=== PATIENT | female | born 1980 | race Caucasian/White ===

== ENCOUNTER 2019-07-01 01:10 | Outpatient (CLI) | payer OTHER, SELFPAY ==
--- NOTE | 2019-07-01 07:30 | DI.US_ITS ---
APPROVED REPORT EXAM: Comprehensive 2D, Doppler, and color-flow Echocardiogram Patient Location: Out-Patient [place] Maker: Jennifer Hu [facility] ([place]) Rhythm: NSR Indications: mitral insufficiency. i34.0 MVP. last echo 2016- re-eval Conclusion Left Ventricle : The left ventricle is normal size. The posterior wall thickness is mildly increased . The septum is normal. The left ventricular systolic function is normal. The left ventricular ejecti on fraction is within the normal range. There is normal LV segmental wall motion. The left ventricula r diastolic function is normal. LVEF is 55-60%. Right Ventricle : The right ventricle is normal size. The right ventricular systolic function is norm al. Atria : Left atrium is mildly dilated. Right atrium size is normal. Aortic Valve : Aortic valve is trileaflet, and mobile. There is no hemodynamic significant aortic andrew vular stenosis. No aortic regurgitation is present. Mitral Valve : Mitral valve leaflets are moderately thickened. Moderate Mitral regurgitation directed anteriorly (Rvol 56ml, RF 46%). No evidence of mitral valve stenosis. Tricuspid Valve : Tricuspid valve leaflets are thickened but open well. Moderate tricuspid regurgitat ion. Great Vessels : The IVC is dilated and collapses >50% with inspiration. Estimated RVSP is 27-35 mmHg . Compared to prior echocardiogram dated 11/17/2015, there is no significant change. Wall motion Left Ventricle The left ventricle is normal size. The left ventricular systolic function is normal. The left ventric ular ejection fraction is within the normal range. The posterior wall thickness is mildly increased. The septum is normal. There is normal LV segmental wall motion. The left ventricular diastolic functi on is normal. LVEF is 55-60%. Right Ventricle The right ventricle is normal size. The right ventricular systolic function is normal. Atria Left atrium is mildly dilated. Right atrium size is normal. Aortic Valve Aortic valve is trileaflet, and mobile. There is no hemodynamic significant aortic valvular stenosis. No aortic regurgitation is present. Mitral Valve Mitral valve leaflets are moderately thickened. No evidence of mitral valve stenosis. Moderate Mitral regurgitation directed anteriorly (Rvol 56ml, RF 46%). prolapse of the posterior mitral valve leafle t. Tricuspid Valve Tricuspid valve leaflets are thickened but open well. Moderate tricuspid regurgitation. Pulmonic Valve Pulmonic valve leaflets are thickened. Mild pulmonic regurgitation. Great Vessels The aortic root is normal in size. The ascending aorta size is normal. The IVC is dilated and collaps es >50% with inspiration. Estimated RVSP is 27-35 mmHg. Pericardium There is no pericardial effusion. 2D Dimensions IVSd 0.95 cm F: 0.6-1.0 LV EDV A2C 105.70 mL PWd 1.00 cm F: 0.6 - 1.0 LV EDV A4C 98.60 mL LVDd 4.65 cm F: 3.8 - 5.2 LA Volume Index A2C 32.46 mL/m2 LVDs 3.20 cm F: 2.2 - 3.5 LA Volume Index A4C 35.24 mL/m2 Aortic Root 2.45 cm F: 2.7 - 3.3 LA Volume Index Biplane 36.36 mL/m2 RA Area A4C 17.83 cm2 LA Area A4C 20.66 cm2 LVOT 1.90 cm (M/F) 1.5-2.5 LA Area A2C 18.45 cm2 Ascending Aorta 2.55 cm F: 2.3 - 3.1 EF AP4 56.39 % LVEF (Teich) 58.34 % EF AP2 54.12 % LVEF (Sykes's) 53.18 % F: 54 - 74 EF BP 53.18 % LV Volume 83.22 mL F: 46 - 106 LV Volume Index 47.01 mL/m2 F: 29 - 61 FS 30.70 % LV Diastology E/A Ratio 1.4 MED E' 0.11 (>0.07 m/s) LV E/e MED 10.30 (<14) LAT E' 0.13 (>0.1 m/s) LV E/e LAT 8.50 (<14) Pulm Vein s 0.50 m/s PV S/D Ratio 0.72 Pulm Vein d 0.70 m/s Pulm Vein a 0.43 m/s Aortic Valve LVOT Area 2.96 cm2 LVOT Peak Romeo. 1.05 m/s LVOT Mean Romeo. 0.82 m/s LVOT Peak Gr. 4.55 mmHg WESTON Vmax Index 1.02 cm2/m2 LVOT Mean Gr. 2.90 mmHg LVOT VTI 0.20 m WESTON Mean Romeo. Index 1.05 cm2/m2 AoV Peak Romeo. 1.74 (0.5-1.3 m/s) AoV Mean Romeo. 1.30 m/s AO Peak GR. 12.16 mmHg AO Mean GR. 7.35 (<5 mmHg) VTI Ratio 0.61 WESTON (VTI) 1.81 (2.5-4.5 cm2) WESTON (VTI) Index 1.02 cm/m2 Mitral Valve MV E Max Romeo. 1.10 (0.4-1.3 m/s) MV A Velocity 0.80 (0.4-1.3 m/s) E/A Ratio 1.31 MV Decel. Time 196.15 (160-240 msec) MV Regurg Volume 56.34 mL MV PHT 56.89 msec MV RF 46.52 % MVA PHT 3.85 cm2 Tricuspid Valve TR P. Velocity 2.61 m/s TV Regurg Vmax 2.61 m/s RAP Estimate 8.00 mmHg RVSP 35.00 mmHg TR P. Gradient 27.15 mmHg
== END 2019-07-01 01:30 ==
PROVIDERS: PCP Nurse Practitioner Family; Visit Provider Nurse Practitioner Family
DX: I34.0 Nonrheumatic mitral (valve) insufficiency (principal); I51.7 Cardiomegaly; I36.1 Nonrheumatic tricuspid (valve) insufficiency
CPT/HCPCS: 93306

== ENCOUNTER → 2019-08-22 09:07 | Outpatient (CLI) | payer OTHER, SELFPAY | PROVIDERS: PCP Nurse Practitioner Family; Referring Provider Nurse Practitioner Family; Visit Provider Internal Medicine Cardiovascular Disease | DX: I34.0 Nonrheumatic mitral (valve) insufficiency (principal) | CPT/HCPCS: 93005; 93010 ==

== ENCOUNTER 2020-06-16 01:58 | Outpatient (CLI) | payer OTHER, SELFPAY ==
[2020-06-16 15:07] LABS: Anion Gap 12.9 mmol/L (3-11); BUN 12 mg/dL (7-18); CO2 25.1 mmol/L (21.0-32.0); Calcium 8.8 mg/dL (8.5-10.1); Calculated LDL 119 mg/dL (<100); Chloride 103 mmol/L (98-107); Cholesterol 197 mg/dL (<200); Glucose 84 mg/dL (74-106); HDL Cholesterol 68 mg/dL (40-60); Potassium 3.9 mmol/L (3.5-5.1); Sodium 141 mmol/L (136-145); Triglyceride 52 mg/dL (<150)
== END 2020-06-16 02:18 ==
PROVIDERS: PCP Nurse Practitioner Family; Visit Provider Nurse Practitioner Family
DX: E78.5 Hyperlipidemia, unspecified (principal)
CPT/HCPCS: 36415; 80048; 80061

== ENCOUNTER 2020-06-18 15:24 | Outpatient (REF) | payer OTHER, SELFPAY ==
--- NOTE | 2020-06-18 14:30 | PAPFT_PTH ---
PATIENT: Roberth Francisco LOC: [facility] U#:[id number] AGE/SX: 39/F ROOM: RE06/18/[address]: VINITA Fermin : 1980 BED: DIS: 06/18/2020 SPEC #: [id number] RECD: 06/21/20 13:08 STATUS: LAVONNE LAI #: [id number] NAMRATA: 06/18/20 14:[address]: Mariajose Qureshi DEPT: [facility] Cytology RECD BY: Suma Mast Tissues: 1 - CX/ENDOCX FOR PAP SMEARS Procedures: PAP THIN PREP/UVM Screening HPV DNA PROBE Comments: [id number] ([id number] [facility])
== END 2020-06-18 15:44 ==
LOC: LBN 15:24
PROVIDERS: PCP Nurse Practitioner Family; Visit Provider Nurse Practitioner Family
DX: Z12.4 Encounter for screening for malignant neoplasm of cervix (principal); Z11.51 Encounter for screening for human papillomavirus (HPV)
CPT/HCPCS: 88142; 87624

== ENCOUNTER 2020-07-21 01:01 | Outpatient (CLI) | payer OTHER, SELFPAY ==
--- NOTE | 2020-07-21 13:48 | DI.US_ITS ---
APPROVED REPORT EXAM: Comprehensive 2D, Doppler, and color-flow Echocardiogram Patient Location: Out-Patient Data Transcriber: Dulce Conner RDCS ([place]) Indications: Mitral valve insufficiency Other Information Study Quality: Good Conclusion Left Ventricle : The left ventricle is normal size. The left ventricular systolic function is normal. The left ventricular ejection fraction is within the normal range. There is normal left ventricular wall thickness. There is normal LV segmental wall motion. The left ventricular diastolic function is normal. LVEF is 60%. Right Ventricle : The right ventricle is normal size. The right ventricular systolic function is norm al. The RVSP is 33.7 mmHg. Atria : The left atrium size is normal. The right atrium size is normal. Mitral Valve : The mitral valve is normal in structure. Moderate mitral regurgitation. Mitral regurgi tation jet is anteriorly directed. No evidence of mitral valve stenosis. Mild mitral valve prolapse. Great Vessels : The aortic root is normal in size. The ascending aorta is normal in size. Aortic arch is normal in caliber. IVC is normal in size and collapses >50% with inspiration. Compared to study from 07/01/2019, there is no significant change. Wall motion Left Ventricle The left ventricle is normal size. The left ventricular systolic function is normal. The left ventric ular ejection fraction is within the normal range. There is normal left ventricular wall thickness. T here is normal LV segmental wall motion. The left ventricular diastolic function is normal. There is no ventricular septal defect visualized. LVEF is 60%. Right Ventricle The right ventricle is normal size. The right ventricular systolic function is normal. The RVSP is 33 .7 mmHg. Atria The left atrium size is normal. The right atrium size is normal. The interatrial septum is intact wit h no evidence for an atrial septal defect. Aortic Valve The aortic valve is normal in structure. Aortic valve is trileaflet. There is no aortic valvular sten osis. No aortic regurgitation is present. Mitral Valve The mitral valve is normal in structure. No evidence of mitral valve stenosis. Moderate mitral regurg itation. Mitral regurgitation jet is anteriorly directed. Mild mitral valve prolapse. Tricuspid Valve The tricuspid valve is normal in structure. There is no tricuspid valve stenosis. Mild tricuspid regu rgitation. Pulmonic Valve The pulmonary valve is normal in structure. There is no pulmonic valvular stenosis. Trace pulmonic re gurgitation. Great Vessels The aortic root is normal in size. The ascending aorta is normal in size. Aortic arch is normal in ca liber. IVC is normal in size and collapses >50% with inspiration. Pericardium There is no pericardial effusion. There is no pleural effusion. 2D Dimensions IVSD d PLAX 0.82 cm F: 0.6-1.0 LV Vol A2C d MOD 83.9 mL LVPW d PLAX 0.82 cm F: 0.6 - 1.0 LV Vol A4C d MOD 93.2 mL LVID d PLAX 4.92 cm F: 3.8 - 5.2 LA vol/ BSA A2C s A-L 32.8 mL/m2 LVDs 3.10 cm F: 2.2 - 3.5 LA vol/ BSA A4C s A-L 28.3 mL/m2 Ao Root d 2.62 cm F: 2.7 - 3.3 LA Vol/ BSA Biplane s A-L 31.5 mL/m2 RA Area A4C 11.91 cm2 LA Area A4C s MOD 18.05 cm2 RA Vol/ BSA A4C s A-L 17.4 mL/m2 LA Area A2C s MOD 18.78 cm2 Ao Asc Diam d 2.95 cm F: 2.3 - 3.1 LV EF A4C MOD 59.9 % LV EF Teichholz 66.4 % LV EF A2C MOD 60.4 % LVEF (Sykes's) 59.94 % F: 54 - 74 LV EF Biplane MOD 59.9 % LV Volume 71.54 mL F: 46 - 106 SV 54.30 mL LV Volume Index 41.59 mL/m2 F: 29 - 61 SV Index 31.47 mL/m2 LV Vol Biplane MOD 90.6 mL FS 36.70 % M-Mode TAPSE 2.68 cm (M/F) >1.7 LV Diastology MV E' medial 0.090 (>0.07 m/s) E/A Ratio 1.4 LV E/e MED 10.60 (<14) MV E Vmax 0.96 (0.4-1.3 m/s) MV E' lateral 0.194 (>0.1 m/s) MV A Vmax 0.70 (0.4-1.3 m/s) LV E/e LAT 4.90 (<14) MV E/A Ratio 1.29 MV E/E' medial 10.63 MV E/E' lateral 4.95 Aortic Valve LVOT Area 3.42 cm2 AoV Area Vmax 2.48 cm2 LVOT Vmax 1.32 m/s AoV Area/ BSA (Vmax) 1.43 cm2/m2 LVOT Mean Romeo. 0.92 m/s WESTON Mean Romeo. 2.52 cm2 LVOT Peak Grad 7.0 mmHg WESTON Mean Romeo. Index 1.46 cm2/m2 LVOT Mean Grad 3.9 mmHg LVOT VTI 0.257 m LVOT Diam s 2.05 cm AoV Vmax 1.83 m/s Velocity Ratio 0.72 AoV Mean Romeo. 1.26 m/s AoV Peak Grad 13.4 mmHg LVOT SV 87.92 mL AoV Mean Grad 7.4 mmHg AoV VTI 0.323 m AoV Area VTI 2.72 cm2 AoV Area/ BSA (VTI) 1.58 cm/m2 Mitral Valve MV DT 188 (160-240 msec) MR Vmax 5.12 m/s MV PHT 54 msec MR VTI 1.618 m MV Area PHT 4.04 cm2 MR Peak Grad 104.7 mmHg MV VTI 0.266 m MR Mean Grad 72.5 mmHg MV VTI Annulus 0.262 m MR PISA Radius 0.49 cm MV Area VTI 3.25 (4.0-6.0 cm2) MR EROA 0.10 cm2 MR Aliasing Velocity 0.35 m/s MR PISA 1.51 cm2 Pulmonary Valve PV Vmax 1.66 (0.5-1.5 m/s) RVOT Peak Gr. 5.21 mmHg PV Peak Grad 11.0 mmHg RVOT Mean Gr. 2.30 mmHg PV Mean Grad 5.0 mmHg RVOT VTI 0.241 m PV VTI 0.322 m RVOT Vmax 1.14 m/s Tricuspid Valve TR Peak Grad 30.6 mmHg TR Vmax 2.77 m/s RA Pressure 3.00 mmHg RVSP (TR) 33.7 mmHg
== END 2020-07-21 01:21 ==
PROVIDERS: PCP Nurse Practitioner Family; Visit Provider Nurse Practitioner Family
DX: I34.0 Nonrheumatic mitral (valve) insufficiency (principal)
CPT/HCPCS: 93306

== ENCOUNTER 2020-07-26 01:27 | Outpatient (CLI) | payer OTHER, SELFPAY ==
--- NOTE | 2020-07-26 07:00 | DI.MAMMO_ITS ---
EXAM: MG MAMMO SCREENING CLINICAL HISTORY: screening, Z12.39. TECHNIQUE: Bilateral full field digital CC and MLO mammographic images were obtained with 3D tomosyn thesis and utilizing computer aided detection (CAD). COMPARISON: None. This is a baseline mammogram on this 39-year-old patient. FINDINGS: The fibroglandular tissue is dense, this decreasing the sensitivity of the mammogram for finding in u nderlying lesions. There are no CAD designations. There are no obvious spiculated masses nor malignant-appearing microcalcification groups. There is no significant architectural distortion nor skin thickening-retraction. IMPRESSION: Dense bilateral fibroglandular tissue. No obvious radiographic evidence of malignancy. Given the density of this patient's fibroglandular tissue if there are any palpable lumps or signific ant family history then screening bilateral breast ultrasound should be considered. BI-RADS Category 2 - Benign Findings Breast Density - Category C - Heterogeneously dense Breast density Category C or D implies that the patient has dense breast tissue. Dense breast tissue can make it harder to find cancer on a mammogram. Dense breast tissue is also associated with an incr eased risk of breast cancer. This information about the result of the mammogram report was provided to the patient to raise their awareness. Use this report when you speak with the patient about their risks for breast cancer, which includes their family history. At that time, you may recommend additional screening tests (Ultrasoun d or MRI) as these tests may add significant information. A negative radiographic report should not delay biopsy if a dominant or clinically suspicious mass is present. Up to ten percent of cancers are not identified on mammography. A negative report may reinforce clinical impression. Adenosis and dense breasts may obscure an underlying neoplasm. False positive reports average 6 to 10%. Patient will receive a letter notifying them of these results.
== END 2020-07-26 01:47 ==
PROVIDERS: PCP Nurse Practitioner Family; Visit Provider Nurse Practitioner Family
DX: Z12.31 Encounter for screening mammogram for malignant neoplasm of breast (principal)
CPT/HCPCS: 77063; 77067

== ENCOUNTER 2022-09-26 01:17 | Outpatient (CLI) | payer OTHER, SELFPAY ==
--- NOTE | 2022-09-26 08:15 | DI.MAMMO_ITS ---
Exam(s) MAMMO SCREENING EXAM: MAMMO SCREENING CLINICAL HISTORY: screening,Z12.39. TECHNIQUE: Bilateral full field digital CC and MLO mammographic images were obtained with 3D tomosyn thesis and utilizing computer aided detection (CAD). COMPARISON: Prior baseline mammogram of June 2020 was reviewed. FINDINGS: The fibroglandular tissue pattern is again noted be moderately dense. This somewhat decreases the se nsitivity of the mammogram for finding hidden underlying lesions. There are no CAD designations. There are no obvious new spiculated masses nor malignant appearing microcalcification groups. There is no significant architectural distortion nor skin thickening-retraction. IMPRESSION: No radiographic evidence of malignancy. BI-RADS Category 2 - Benign Findings Breast Density - Category C - Heterogeneously dense Breast density Category C or D implies that the patient has dense breast tissue. Dense breast tissue can make it harder to find cancer on a mammogram. Dense breast tissue is also associated with an incr eased risk of breast cancer. This information about the result of the mammogram report was provided to the patient to raise their awareness. Use this report when you speak with the patient about their risks for breast cancer, which includes their family history. At that time, you may recommend additional screening tests (Ultrasoun d or MRI) as these tests may add significant information. A negative radiographic report should not delay biopsy if a dominant or clinically suspicious mass is present. Up to ten percent of cancers are not identified on mammography. A negative report may reinforce clinical impression. Adenosis and dense breasts may obscure an underlying neoplasm. False positive reports average 6 to 10%. Patient will receive a letter notifying them of these results.
--- NOTE | 2022-09-26 13:57 | DI.US_ITS ---
APPROVED REPORT EXAM: Comprehensive 2D, Doppler, and color-flow Echocardiogram Patient Location: Out-Patient [place] Helper: Dulce Conner RDCS ([place]) Indications: Reassess MVR, MVP Other Information Study Quality: Adequate Conclusion Normal left ventricular wall thickness and chamber size. Ejection fraction is 60%. Wall motion is n ormal Normal right ventricular size and systolic function Both atria are normal in size Mildly thickened mitral leaflets with mild prolapse. There is moderate eccentric mitral regurgitatio n Estimated right ventricular systolic pressure is 23 mmHg Wall motion Left Ventricle The left ventricle is normal size. The left ventricular systolic function is normal. The left ventric ular ejection fraction is within the normal range. There is normal left ventricular wall thickness. T here is normal LV segmental wall motion. There is no ventricular septal defect visualized. LVEF is 60 %. Right Ventricle The right ventricle is normal size. The right ventricular systolic function is normal. The RVSP is 22 .8_ mmHg. Atria The left atrium size is normal. The right atrium size is normal. The interatrial septum is intact wit h no evidence for an atrial septal defect. Aortic Valve The aortic valve is normal in structure. Aortic valve is trileaflet. There is no aortic valvular sten osis. No aortic regurgitation is present. Mitral Valve Very mildly thickened mitral leaflets No evidence of mitral valve stenosis. moderate mitral regurgit ation. Mitral regurgitation jet is eccentrically directed. Mild mitral valve prolapse. Tricuspid Valve The tricuspid valve is normal in structure. There is no tricuspid valve stenosis. Trace to mild tricu spid regurgitation. Pulmonic Valve The pulmonary valve is normal in structure. There is no pulmonic valvular stenosis. Trace pulmonic re gurgitation. Great Vessels The aortic root is normal in size. Ascending aorta is not well visualized. Aortic arch is normal in c aliber. IVC is normal in size and collapses >50% with inspiration. Pericardium There is no pericardial effusion. 2D Dimensions IVSD d PLAX 0.90 cm F: 0.6-1.0 LV Vol A2C d MOD 100.7 mL LVPW d PLAX 0.92 cm F: 0.6 - 1.0 LV Vol A4C d MOD 83.8 mL LVID d PLAX 4.55 cm F: 3.8 - 5.2 LA vol/ BSA A2C s A-L 31.6 mL/m2 LVDs 3.05 cm F: 2.2 - 3.5 LA vol/ BSA A4C s A-L 30.1 mL/m2 Ao Root d 2.67 cm F: 2.7 - 3.3 LA Vol/ BSA Biplane s A-L 33.3 mL/m2 RA Area A4C 10.55 cm2 LA Area A4C s MOD 18.40 cm2 RA Vol/ BSA A4C s A-L 12.5 mL/m2 LA Area A2C s MOD 17.44 cm2 LV EF Teichholz 60.8 % LV EF A4C MOD 60.4 % LVEF (Sykes's) 60.23 % F: 54 - 74 LV EF A2C MOD 61.3 % LV Volume 75.22 mL F: 46 - 106 LV EF Biplane MOD 60.2 % LV Volume Index 43.73 mL/m2 F: 29 - 61 SV 57.30 mL LV Vol Biplane MOD 95.1 mL SV Index 33.31 mL/m2 FS 32.40 % M-Mode TAPSE 2.10 cm (M/F) >1.7 LV Diastology MV E' medial 0.116 (>0.07 m/s) E/A Ratio 1.1 LV E/e MED 5.95 (<14) MV E Vmax 0.69 (0.4-1.3 m/s) MV E' lateral 0.163 (>0.1 m/s) MV A Vmax 0.65 (0.4-1.3 m/s) LV E/e LAT 4.25 (<14) MV E/A Ratio 0.99 MV E/E' medial 5.95 MV E/E' lateral 4.25 Aortic Valve LVOT Area 3.10 cm2 AoV Area Vmax 2.46 cm2 LVOT Vmax 1.35 m/s AoV Area/ BSA (Vmax) 1.43 cm2/m2 LVOT Mean Romeo. 0.88 m/s WESTON Mean Romeo. 2.32 cm2 LVOT Peak Grad 7.3 mmHg WESTON Mean Romeo. Index 1.35 cm2/m2 LVOT Mean Grad 3.7 mmHg LVOT VTI 0.260 m LVOT Diam s 1.95 cm AoV Vmax 1.70 m/s Velocity Ratio 0.79 AoV Mean Romeo. 1.18 m/s AoV Peak Grad 11.5 mmHg LVOT SV 80.52 mL AoV Mean Grad 6.2 mmHg AoV VTI 0.294 m AoV Area VTI 2.74 cm2 AoV Area/ BSA (VTI) 1.59 cm/m2 Mitral Valve MV DT 239 (160-240 msec) MR Vmax 5.45 m/s MV PHT 69 msec MR VTI 1.661 m MV Area PHT 3.17 cm2 MR Peak Grad 118.9 mmHg MV VTI 0.283 m MR Mean Grad 78.1 mmHg MV VTI Annulus 0.293 m MV Area VTI 2.94 (4.0-6.0 cm2) Pulmonary Valve PV Vmax 1.77 (0.5-1.5 m/s) RVOT Peak Gr. 5.63 mmHg PV Peak Grad 12.6 mmHg RVOT Mean Gr. 2.40 mmHg PV Mean Grad 5.8 mmHg RVOT VTI 0.251 m PV VTI 0.308 m RVOT Vmax 1.19 m/s Tricuspid Valve TR Peak Grad 19.7 mmHg TR Vmax 2.22 m/s RA Pressure 3.00 mmHg RVSP (TR) 22.8 mmHg
== END 2022-09-26 01:37 ==
LOC: DI 01:17
PROVIDERS: PCP Nurse Practitioner Family; Visit Provider Nurse Practitioner Family
DX: Z12.39 Encounter for other screening for malignant neoplasm of breast (principal); I34.0 Nonrheumatic mitral (valve) insufficiency
CPT/HCPCS: 77063; 77067; 93306

== ENCOUNTER 2023-10-19 08:05 | Day surgery (SDC) | payer OTHER, SELFPAY ==
--- NOTE | 2023-10-19 08:33 | ANES.PREOP_ITS ---
General Info Date of Service Date Performed: 10/19/23 Height: 5 ft 6 in Weight: 70.76 kg Body Mass Index (BMI): 25.2 Surgical Procedure: Operation Date: 10/19/23 09:05 Proposed Procedure Side Surgeon kala Baker DO Meds Allergies and Home Medications Allergies Allergy/AdvReac Type Severity Reaction Status Date / Time gluten AdvReac Intermediate HEADACHE, Verified 10/19/23 08:32 STOMACH ACHE Home Medication Medication Instructions Recorded biotin 5,000 mcg disintegrating 5,000 mcg PO DAILY 06/18/20 tablet levonorgestrel 0.15 mg-ethinyl 1 tab PO DAILY #84 tabs 06/07/23 estradiol 0.03 mg tablet ([place] 28) albuterol sulfate 90 mcg/actuation 2 inh inhalation .Q4-Q6H PRN 10/16/23 aerosol inhaler shortness of breath or wheezing #18 grams Current Visit Medications: Current Medications Generic Name Dose Route Start Last Admin Trade Name Freq PRN Reason Stop Dose Admin Ringer's Solution 1,000 mls @ 80 mls/hr 10/19/23 06:00 IV 11/17/23 23:59 INFUSION TREVIN IV Miscellaneous Supplies 1 each 10/19/23 06:00 Iv Access IV 11/17/23 23:59 DIRECTED TREVIN Sodium Chloride 0 ml 10/19/23 06:00 Normal Saline Flush 10 Ml Syr IV 11/17/23 23:59 PRN PRN Sodium Chloride 0 ml 10/19/23 06:00 Normal Saline 10 Ml Vial IJ 11/17/23 23:59 DIRECTED PRN Sterile Water 0 ml 10/19/23 06:00 Water,Injection,Sterile 10 Ml Vial IJ 11/17/23 23:59 DIRECTED PRN PFSH Active Problems Active Problems: Problem Status Onset Code Hyperlipidemia E78.5 Oral contraceptive pill surveillance Z30.41 Mild intermittent asthma J45.20 Celiac disease Mitral valve regurgitation I34.0 Mitral valve prolapse Medical History Medical History COVID-19 virus infection (~07/2021) Surgical History Surgical History S/P LEEP of cervix (~2005) Tobacco Smoking/Tobacco Use Status: Never Passive smoking exposure: Yes Second hand exposure: Yes Alcohol Alcohol Intake: current Alcohol intake frequency: holidays/special occasions o nly Substance Use Substance use: Never Substance use type: does not use Counseling provided: none Prental History History 2 Para 2 Hx # Term Pregnancies Multiple births Hx # Pregnancies Ectopic pregnancies AB induced Hx Number of Living Children 2 AB spontaneous Vital Signs and Lab Results Lab Results Blood Type / Crossmatch: No Data to Display Complete Blood Count: No Data to Display Complete Metabolic Panel: No Data to Display Liver Function Panel: No Data to Display Coagulation Panel: No Data to Display Cardiac Panel: No Data to Display Arterial Blood Gas: No Data to Display Venous Blood Gas: No Data to Display Pancreas Panel: No Data to Display Thyroid Panel: No Data to Display Infectious Disease: No Data to Display Blood Cultures: No Data to Display Toxicology Panel: No Data to Display Panel: No Data to Display Imaging and Studies Imaging and Studies Study information below may be from another EMR and interpreted by another provider. Please see original notes in EMR for more complete details. Echocardiogram Summary: 09/26/22 Conclusion Normal left ventricular wall thickness and chamber size. Ejection fraction is 60%. Wall motion is normal Normal right ventricular size and systolic function Both atria are normal in size Mildly thickened mitral leaflets with mild prolapse. There is moderate eccentric mitral regurgitation Estimated right ventricular systolic pressure is 23 mmHg Pulmonary Function Summary: 10/09/15 IMPRESSION: Mild obstructive airways disease with some but not significant bronchodilator response. This is associated with elevated diffusion capacity and elevated airways resistance. The constellation of findings is most likely representing underlying asthma. Clinical correlation recommended. Anesthesia Assessment and Plan Anesthesia History Personal History: No History of Anesthesia Complications Family History: No Family History of Anesthesia Complications Exercise Tolerance Exercise Tolerance: Metabolic Equivalents>4 Pertinent Negatives Pertinent Negatives: No Symptoms of GERD, No Major Cardiovascular Symptoms or Complaints, No Major Pulmonary Symptoms or Complaints and No History of CVA/TIA Cardiac & Pulmonary Exam Cardiac Exam: Normal S1/S2 Heart Sounds Pulmonary Exam: Clear Bilateral Breath Sounds Implantable Cardiac Device Does patient have a Pacemaker or an ICD?: No Airway Exam Known Difficult Airway: No Mallampati Class: 2 Mouth Opening: Normal (> 3cm) Thyromental Distance: Greater than 3 cm Neck Range of Motion: Full ROM Neck Circumference: Normal Teeth Condition: Normal Dentition ASA Classification ASA Score: ASA 2 Emergency Case?: No NPO Status NPO Status: NPO Clears >2 hours, Solids >8 hours Status Status: Negative HCG Anesthesia Plan Resuscitation Status: Full Code Anesthesia Technique: General Anesthesia Airway Planned: Natural Airway Monitors Used: Standard Monitors Preoperative Comments:: Increase in inhaler use last few weeks, used inhaler this am
[2023-10-19 08:34] VITALS: BP 120/69; PULSE 93; RESP 16; TEMP 36.7; O2SAT 100
[2023-10-19] MEDS: Lactated Ringers 1,000 ML 80 ML IV (08:38)
[2023-10-19 08:59] VITALS: BMI 25.2
--- NOTE | 2023-10-19 09:14 | BOWEL_PTH ---
PATIENT: Roberth Francisco LOC: [facility] U#:[id number] AGE/SX: 43/F ROOM: RE10/19/[address]: Mya Baker : 1980 BED: DIS: 10/19/2023 SPEC #: [id number] RECD: 10/19/23 13:09 STATUS: LAVONNE RE #: [id number] NAMRATA: 10/19/23 09:[address]: Mya Baker DEPT: Surgical Specimen RECD BY: Suma Mast ENTERED: 10/19/23 13:11 SP TYPE: Bowel OTHR DR: Mariajose Qureshi, VINITA Tissues: 1 - BIOPSY BOWEL 2 - BIOPSY BOWEL 3 - BIOPSY BOWEL 4 - BIOPSY BOWEL 5 - BIOPSY BOWEL Procedures: GROSS AND MICRO LEVEL 4 Comments: [id number]
[2023-10-19 09:28] VITALS: BP 123/96; PULSE 90; RESP 18; TEMP 36.4; O2SAT 94
--- NOTE | 2023-10-19 09:35 | W.COLOREPORT ---
Date of service: 10/19/23 Time of Service: 09:35 Colonoscopy Report Date of procedure: 10/19/23 Pre-op diagnosis general: Colon cancer screening/celiac disease Post-op diagnosis procedure note: same (External hemorrhoidal tag) Surgeon: Mya Baker Anesthesia Type: General:No Airway Estimated blood loss (mL): 0 Pathology: none sent Complications: None Disposition: same day Prep: Miralax/Dulcolax Retraction Time: 12 Procedure Description: After informed consent was obtained the patient was taken to the procedure room and placed in a left decubitous position. Monitors were applied and a time out was done. The patients name, date of , procedure, allergies to medications and metal in their body was reviewed. The patient was then sedated. Once sedated and comfortable a rectal exam was done. External exam: External hemorrhoidal tag internal exam revealed a normal sphincter tone and no palpable masses. The scope was then introduced and retrofelexed. No internal hemorrhoids were identified. The scope was then advanced to the cecum without difficulty. The TI and appendiceal orifice were identified. There are no AVMs, diverticula, or polyps visualized today. Biopsies are done of the terminal ileum/90/60/30 cm and rectum. All specimens are retrieved and no bleeding is noted the scope was then slowly retracted over minutes back into the rectum. The scope was removed and the patient was woken up and taken back to Same day surgery in stable condition. The patient tolerated the procedure well and there were no immediate complications. Follow up: The patient should follow up in 10 years unless they develop changes in bowel habits or other new gastrointestinal complaints.
--- NOTE | 2023-10-19 09:37 | W.PM.DS.N ---
Date of service: 10/19/23 Time of Service: 09:37 DS: Diagnosis Discharge Diagnosis (1) External hemorrhoids without complication: Status: Acute (2) Mitral valve prolapse: Status: Chronic (3) Allergic rhinitis: Status: Inactive (4) Celiac disease: Status: Chronic Asessment and Plan: The patient is seen and examined after their colonoscopy.? The patient has been able to pass gas.? They are not having abdominal pain.? They have been able to tolerate liquids and a snack.? They do not have any nausea or vomiting.? They are not having any chest pain or shortness of breath.??? They are not having any rectal bleeding. Their vital signs have been stable-see nursing notes. We discussed findings during their colonoscopy, and any biopsies that were done/polyps that were removed. The patient will be sent a letter with any biopsy results, and when to repeat the colonoscopy.-see discharge instructions. Patient was given explicit instructions to follow-up regarding colonoscopy-refer to discharge instructions.? We reviewed resumption of medications. Patient verbalized understanding and discharged in stable and satisfactory condition- See nursing notes. (5) Mild intermittent asthma: Status: Chronic Discharge Plan Disposition Patient Disposition: Home Condition: Good Discharge Details Reason For Visit: colon scope Attending Provider: Mya Baker Primary Care Provider: Mariajose Qureshi Home Meds and New Rx's Prescriptions: No Action biotin 5,000 mcg tablet,disintegrating 5,000 mcg PO DAILY levonorgestrel-ethinyl estrad [[place] 28] 0.15-0.03 mg tablet 1 tab PO DAILY Qty: 84 3RF albuterol sulfate 90 mcg/actuation HFA aerosol inhaler 2 inh IH .Q4-Q6H PRN (Reason: shortness of breath or wheezing) Qty: 18 4RF Discharge Instructions Additional Instructions: DSU Colonoscopy Post-Op Instructions Instructions for Everyone who is given Anesthesia: For your safety, please do the following for the next twenty-four (24) hours: *Do Not operate a motor vehicle (car, truck, motorcycle, etc.) *Do Not drink alcoholic beverages or use any recreational drugs for the first 24 hours or while taking pain medications. The medications in your body may have a reaction that can be dangerous. *Do Not make any important decisions or sign any important papers. Findings: normal Follow up: Repeat scope in 10 years time. Of course, you should continue to have a yearly physical exam including a rectal exam. If you should ever notice any pain or difficulty having a bowel movement, blood in the stool, unexplained weight loss, or change in your bowel habits, please contact your health provider. 1. No lifting over 20 pounds or strenuous activity for the first 24 hours after your procedure. After 24 hours there are no restrictions on your activity but you may feel fatigued for a few days. 2. After you arrive home you may have a light meal and return to your normal diet as you can tolerate it without feeling sick to your stomach. 3. You may have a bloated, gaseous feeling in your belly (abdomen) after a colonoscopy. Passing gas and belching will help. Walking or lying down on your left side with your knees flexed may relieve the discomfort. Call the office at [phone] (Office) or [phone] (Hospital) right away if you notice any of the following: a.Vomiting of blood or ?coffee ground stools?. b.Rectal bleeding 1Tbsp, blood clots or continuous bleeding. c.Severe belly (abdominal) pain. d.A hard distended belly (abdomen) and an inability to pass gas. 4. Please don?t expect to have a normal BM (bowel movement) for 2-3 days after your procedure. 5. If there are questions regarding the findings of your procedure, please contact your doctor 6. If you are unable to contact your doctor with a problem, contact the hospital at [phone]. 7. Continue all your regular medications unless directed otherwise. I understand the above instructions and have no questions. Signature of Patient or Adult Escort Name of Responsible Adult Escort Signature of Nurse Date/Time Activity:: See above Diet:: See above DS: Summary Quality:SDOH Health Related Social Needs: No Data to Display DS: Data Vitals/I&O Vitals and I&O: Vital Signs Temperature 36.4 C L 10/19/23 09:28 Pulse 90 10/19/23 09:28 Pulse Rhythm Regular 10/19/23 08:34 Respiratory Rate 18 10/19/23 09:28 Respiratory Depth Normal 10/19/23 08:34 Blood Pressure 123/96 H 10/19/23 09:28 Pulse Oximetry 94 10/19/23 09:28 Oxygen Delivery Method Room Air 10/19/23 09:28 Oxygen Flow Rate 0 10/19/23 08:34 Pain Level 0 10/19/23 09:28 Intake & Output 10/18/23 10/18/23 10/19/23 11:59 23:59 11:59 Intake Total 250 / 250 Balance 250 / 250 Weight 70.76 kg Intake: IV 250 / 250 Other: Emesis Description None PFSH All Active Problems (Updated 10/19/23 @ 09:38 by Mya Baker DO) External hemorrhoids without complication (Acute) Hyperlipidemia (Chronic) Oral contraceptive pill surveillance (Chronic) Mild intermittent asthma (Chronic) Celiac disease (Chronic) Mitral valve regurgitation (Chronic) Moderate on ECHO 2019. Followed by [facility] cardiology Mitral valve prolapse (Chronic) Posterior. Last ECHO 2019 Medical History COVID-19 virus infection (~07/2021) Surgical History S/P LEEP of cervix (~2005) Family History Mother Hyperlipidemia Father , at 58 of [place] Heart disease Myocardial infarction Sister Asthma Multiple sclerosis Sister No problems noted. Brother Type 1 diabetes mellitus Brother No problems noted. Son Asthma Daughter No problems noted. Maternal Grandfather , at 87 Myocardial infarction Heart disease Maternal Grandmother , at 89 of [place] Myocardial infarction Heart disease Asthma Paternal Grandfather , at 92 Diabetes Myocardial infarction Heart disease Paternal Grandmother , at 68 Type 2 diabetes mellitus Heart disease Myocardial infarction Social History Smoking/Tobacco Use Status: Never Second Hand Exposure: Yes Smoking risk assessment performed?: Yes Alcohol Intake: current Alcohol Intake frequency: holidays/special occasions only Drug use: Never Substance use type: does not use Counseling given: No Counseling provided: none Adopted: No Caregiver/Support person: No Foster care: No Household members: spouse, family and children Housing: house Number of Children: 2 Communication Needs: None Education Level: college Details: some Do you need help understanding health information?: Never 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 Pets and animals: Yes Pets and animals: cat(s) Sexually active: Yes Do you think of yourself as: straight/heterosexual Current gender identity: female What is your relationship status?: How often do you talk on the phone with friends or family?: three or more times per week How often do you get together with friends or relatives?: twice per week How often do you attend adventist or episcopalian services?: 1-3 times per year Do you belong to any clubs or organized social groups?: no Panel score (0-1 are the most socially isolated patients): 2 What type of physical activity do you participate in: additional Details: work can have a lot of moving around Duration: 45-60 minutes/day Nidia/Rastafari: Anabaptist Agree to transfusion: Yes Seatbelt use: always Drive intox or ride w/intox retail delivery driver: No Working smoke detector in home: Yes Carbon monox detector in home: Yes Firearms in home: Yes Firearms unloaded and locked: Yes Do you feel safe at home: Yes Do you feel safe in your relationship?: Yes Victim of physical abuse: No Victim of emotional abuse: No Victim of sexual abuse: No Would you like helpful sources: No History History 2 Para 2 Hx # Term Pregnancies Multiple births Hx # Pregnancies Ectopic pregnancies AB induced Hx Number of Living Children 2 AB spontaneous
--- NOTE | 2023-10-19 09:40 | PDOC.DSDIS_ITS ---
Date of service: 10/19/23 Time of Service: 09:40 Discharge Plan Disposition Patient Disposition: Home Condition: Good Discharge Details Reason For Visit: colon scope Attending Provider: Mya Baker Primary Care Provider: Mariajose Qureshi Home Meds and New Rx's Prescriptions: No Action biotin 5,000 mcg tablet,disintegrating 5,000 mcg PO DAILY levonorgestrel-ethinyl estrad [[place] 28] 0.15-0.03 mg tablet 1 tab PO DAILY Qty: 84 3RF albuterol sulfate 90 mcg/actuation HFA aerosol inhaler 2 inh IH .Q4-Q6H PRN (Reason: shortness of breath or wheezing) Qty: 18 4RF Discharge Instructions Additional Instructions: DSU Colonoscopy Post- Op Instructions Instructions for Everyone who is given Anesthesia: For your safety, please do the following for the next twenty-four (24) hours: *Do Not operate a motor vehicle (car, truck, motorcycle, etc.) *Do Not drink alcoholic beverages or use any recreational drugs for the first 24 hours or while taking pain medications. The medications in your body may have a reaction that can be dangerous. *Do Not make any important decisions or sign any important papers. Findings: normal Follow up: Repeat scope in 10 years time. Of course, you should continue to have a yearly physical exam including a rectal exam. If you should ever notice any pain or difficulty having a bowel movement, blood in the stool, unexplained weight loss, or change in your bowel habits, please contact your health provider. 1. No lifting over 20 pounds or strenuous activity for the first 24 hours after your procedure. After 24 hours there are no restrictions on your activity but you may feel fatigued for a few days. 2. After you arrive home you may have a light meal and return to your normal diet as you can tolerate it without feeling sick to your stomach. 3. You may have a bloated, gaseous feeling in your belly (abdomen) after a colonoscopy. Passing gas and belching will help. Walking or lying down on your left side with your knees flexed may relieve the discomfort. Call the office at [phone] (Office) or [phone] (Hospital) right away if you notice any of the following: a.Vomiting of blood or ?coffee ground stools?. b.Rectal bleeding 1Tbsp, blood clots or continuous bleeding. c.Severe belly (abdominal) pain. d.A hard distended belly (abdomen) and an inability to pass gas. 4. Please don?t expect to have a normal BM (bowel movement) for 2-3 days after your procedure. 5. If there are questions regarding the findings of your procedure, please contact your doctor 6. If you are unable to contact your doctor with a problem, contact the hospital at [phone]. 7. Continue all your regular medications unless directed otherwise. I understand the above instructions and have no questions. Signature of Patient or Adult Escort Name of Responsible Adult Escort Signature of Nurse Date/Time Activity:: See above Diet:: See above DS: Diagnosis Discharge Diagnosis (1) External hemorrhoids without complication: Status: Acute (2) Mitral valve prolapse: Status: Chronic (3) Allergic rhinitis: Status: Inactive (4) Celiac disease: Status: Chronic Asessment and Plan: The patient is seen and examined after their colonoscopy.? The patient has been able to pass gas.? They are not having abdominal pain.? They have been able to tolerate liquids and a snack.? They do not have any nausea or vomiting.? They are not having any chest pain or shortness of breath.??? They are not having any rectal bleeding. Their vital signs have been stable-see nursing notes. We discussed findings during their colonoscopy, and any biopsies that were done/polyps that were removed. The patient will be sent a letter with any biopsy results, and when to repeat the colonoscopy.-see discharge instructions. Patient was given explicit instructions to follow-up regarding colonoscopy-refer to discharge instructions.? We reviewed resumption of medications. Patient verbalized understanding and discharged in stable and satisfactory condition- See nursing notes. (5) Mild intermittent asthma: Status: Chronic
--- NOTE | 2023-10-19 09:52 | W.ANESPOSTOP ---
Postoperative Evaluation Date, Time and Location Date Performed: 10/19/23 Time Performed: :44 Patient Location: Day Surgery Unit Vital Signs Most Recent Imported Vital Signs: Most Recent Vital Signs Temp Pulse Resp BP Pulse Ox 36.4 C L 90 18 123/96 H 94 10/19/23 09:28 10/19/23 09:28 10/19/23 09:28 10/19/23 09:28 10/19/23 09:28 Pain Score Most Recent Pain Score: Most Recent Pain Score Pain Level 0 10/19/23 09:28 Assessment Mental Status: Awake (Alert & Oriented to Patient Baseline) Airway and Respiratory Function: Patent airway with normal (patient baseline) respiratory exam Cardiovascular Function: Hemodynamically Stable Hydration Status: Adequately Hydrated Nausea & Vomiting: No Nausea or Vomiting Pain: Pt. Denies Any Pain Peripheral Nerve Block: Patient did not receive a nerve block
[2023-10-19 09:58] VITALS: BP 103/52; PULSE 74; RESP 18; TEMP 37; O2SAT 99
== END 2023-10-19 10:46 | disposition home or self-care (01) ==
PROVIDERS: PCP Nurse Practitioner Family; Visit Provider Surgery
PROC: 0DJD8ZZ Inspection of Lower Intestinal Tract, Via Natural or Artificial Opening Endoscopic (ICD-10-PCS; CPT 45378; principal; 2023-10-19 09:00)
DX: Z12.11 Encounter for screening for malignant neoplasm of colon (principal); K63.5 Polyp of colon; K90.0 Celiac disease; J45.20 Mild intermittent asthma, uncomplicated
CPT/HCPCS: 45380; 88305; J2001; J2405; J2704

== ENCOUNTER 2024-08-22 12:40 | Outpatient (REF) | payer OTHER, SELFPAY ==
--- NOTE | 2024-08-22 09:50 | PAPFT_PTH ---
PATIENT: Roberth Francisco LOC: [facility] U#:[id number] AGE/SX: 43/F ROOM: RE08/22/[address]: VINITA Fermin : 1980 BED: DIS: 08/22/2024 SPEC #: [id number] RECD: 08/22/24 13:00 STATUS: LAVONNE LAI #: [id number] NAMRATA: 08/22/24 09:[address]: Mariajose Qureshi DEPT: [facility] [place] Cytology RECD BY: Suma Mast Tissues: 1 - CX/ENDOCX FOR PAP SMEARS Procedures: PAP THIN PREP/[facility] Screening HPV DNA PROBE Comments: [id number] (HPV 16 & 18/45)
== END 2024-08-22 12:41 | disposition home or self-care (01) ==
LOC: LBN 12:40
PROVIDERS: PCP Nurse Practitioner Family; Visit Provider Nurse Practitioner Family
DX: E78.5 Hyperlipidemia, unspecified (principal); Z11.4 Encounter for screening for human immunodeficiency virus [HIV]; Z11.59 Encounter for screening for other viral diseases; Z30.41 Encounter for surveillance of contraceptive pills
CPT/HCPCS: 88142; 87624

== ENCOUNTER 2024-10-01 01:11 | Outpatient (CLI) | payer OTHER, SELFPAY ==
--- NOTE | 2024-10-01 | DI.MAMMO_ITS ---
Exam(s) MAMMO SCREENING EXAM: MAMMO SCREENING CLINICAL HISTORY: screening,z12.39. TECHNIQUE: Bilateral full field digital CC and MLO mammographic images were obtained with 3D tomosyn thesis and utilizing computer aided detection (CAD). COMPARISON: Prior mammograms were reviewed. FINDINGS: There has been no significant change in the appearance and distribution of the fibroglandular tissue which is again noted to be moderately dense.. There are no CAD designations. There are no new spiculated masses nor new malignant appearing microcalcification groups. There is no significant architectural distortion nor skin thickening-retraction. IMPRESSION: Dense bilateral fibroglandular tissue. No obvious radiographic evidence of malignancy or significant change compared to prior mammograms.. BI-RADS Category 1 - Negative Breast Density - Category C - Heterogeneously dense Breast density Category C or D implies that the patient has dense breast tissue. Dense breast tissue can make it harder to find cancer on a mammogram. Dense breast tissue is also associated with an incr eased risk of breast cancer. This information about the result of the mammogram report was provided to the patient to raise their awareness. Use this report when you speak with the patient about their risks for breast cancer, which includes their family history. At that time, you may recommend additional screening tests (Ultrasoun d or MRI) as these tests may add significant information. A negative radiographic report should not delay biopsy if a dominant or clinically suspicious mass is present. Up to ten percent of cancers are not identified on mammography. A negative report may reinforce clinical impression. Adenosis and dense breasts may obscure an underlying neoplasm. False positive reports average 6 to 10%. Patient will receive a letter notifying them of these results.
== END 2024-10-01 01:31 ==
LOC: DI 01:11
PROVIDERS: PCP Nurse Practitioner Family; Visit Provider Nurse Practitioner Family
DX: Z12.31 Encounter for screening mammogram for malignant neoplasm of breast (principal); R92.333 Mammographic heterogeneous density, bilateral breasts
CPT/HCPCS: 77063; 77067

== ENCOUNTER 2024-10-01 17:19 | Outpatient (CLI) | payer OTHER, SELFPAY ==
[2024-10-01 16:29] LABS: Anion Gap 7.6 mmol/L (3-11); BUN 19 mg/dL (7-18); CO2 27.4 mmol/L (21.0-32.0); CREATININE 0.9 mg/dL (0.55-1.02); Calcium 8.9 mg/dL (8.5-10.1); Calculated LDL 99 mg/dL (<100); Chloride 105 mmol/L (98-107); Cholesterol 180 mg/dL (<200); Estimated GFR 79.85 (mL/min/1.73m2); Glucose 87 mg/dL (74-106); HDL Cholesterol 64 mg/dL (>or=50); Potassium 3.8 mmol/L (3.5-5.1); Sodium 140 mmol/L (136-145); TSH (W/Ref FT4) 2.02 uIU/mL (0.36-3.74); Triglyceride 88 mg/dL (<150)
[2024-10-01 17:53] LABS: Hemoglobin A1C 5.4 % (<5.7)
[2024-10-03 09:51] LABS: HIV-1/2 Ag & Ab Screen Negative (Negative)
[2024-10-03 09:56] LABS: HBs Antibody, Quant <3.1 mIU/mL (See Note); Hep B Surface Ab Negative (See Note); Hepatitis B Core Antibody Negative (Negative); Hepatitis B Surface Antigen Negative (Negative)
[2024-10-03 10:08] LABS: Hepatitis C Ab w Rflx HCV PCR Negative (Negative)
== END 2024-10-01 17:20 | disposition home or self-care (01) ==
LOC: LBO 17:20
PROVIDERS: PCP Nurse Practitioner Family; Visit Provider Nurse Practitioner Family
DX: Z11.4 Encounter for screening for human immunodeficiency virus [HIV] (principal); Z00.00 Encounter for general adult medical examination without abnormal findings; E78.5 Hyperlipidemia, unspecified; Z11.59 Encounter for screening for other viral diseases
CPT/HCPCS: 36415; 80048; 80061; 86704; 86706; 86803; 87340; 87389; 83036; 84443